=== PATIENT | male | born 1990 | race Caucasian/White ===

== ENCOUNTER 2021-01-12 11:32 | Inpatient (IN) | payer BC ==
--- NOTE | 2021-01-12 11:41 | PCM.HP.2 ---
H&P History of Present Illness - General Date of Service: 01/12/21 Admit Problem/Dx: Hypoxia Source of Information: Patient, Old Records, Provider, RN, RN Notes Reviewed History Limitations: Reports: No Limitations - History of Present Illness Initial Comments - Free Text/Narative: This is a 30-year-old male who presents to our facility as a direct admit from [facility] in [place] due to continuing COVID-19 pneumonia with failed outpatient treatment. Patient reports his symptoms began on 01/01/2021 and he initially tested positive for Covid on 01/12/2021. He reports 2 days ago he was started on a steroid pill, and an antibiotic pill, and a liquid cough medicine but he is not sure what these were. Today he is requiring 3 L of oxygen. He reports diarrhea that comes and goes and a cough with mild sputum production. He states that he does feel congested at times and quite weak. He denies any current medications, known drug allergies, or current medical conditions aside from a jovon in his left leg which was placed several years ago secondary to a fracture. He reports he is overall quite healthy. He did not receive the COVID-19 vaccine. He is not a smoker. He is obese with a BMI of 38.6. He is a full code. He subsequently admitted to the medical floor for management of his COVID-19 pneumonia symptoms and further work-up. - Related Data Allergies/Adverse Reactions: Allergies Allergy/AdvReac Type Severity Reaction Status Date / Time No Known Allergies Allergy Verified 01/12/21 12:31 H&P Review of Systems - Review of Systems: Review Of Systems: See Below General: Reports: Malaise, Weakness, Fatigue. Denies: Fever, Chills, Decreased Appetite HEENT: Reports: No Symptoms. Denies: Headaches, Sore Throat Pulmonary: Reports: Shortness of Breath, Pleuritic Chest Pain, Cough, Sputum. Denies: Wheezing Cardiovascular: Reports: Dyspnea on Exertion, Lightheadedness (when standing ). Denies: Chest Pain, Palpitations, Edema Gastrointestinal: Reports: Diarrhea (at times ). Denies: Abdominal Pain, Constipation, Nausea, Vomiting Genitourinary: Reports: No Symptoms. Denies: Pain Musculoskeletal: Reports: No Symptoms Skin: Reports: No Symptoms. Denies: Cyanosis Psychiatric: Reports: No Symptoms Neurological: Reports: No Symptoms. Denies: Confusion, Dizziness, Headache, Numbness, Pre-Existing Deficit, Seizure, Syncope, Tingling, Tremors, Trouble Speaking, Difficulty Walking, Change in Speech, Gait Disturbance Hematologic/Lymphatic: Reports: No Symptoms Immunologic: Reports: No Symptoms Exam - Exam Exam: See Below - Exam Quality Assessment: Supplemental Oxygen (3L), DVT Prophylaxis (Lovenox ) General: Alert, Oriented, Cooperative. No: Mild Distress HEENT: Conjunctiva Clear, EACs Clear, Mucosa Moist & [place], Posterior Pharynx Clear Neck: Supple, Trachea Midline Lungs: Normal Respiratory Effort, Decreased Breath Sounds, Crackles. No: Wheezing Cardiovascular: Regular Rate, Regular Rhythm GI/Abdominal Exam: Normal Bowel Sounds, Soft, Non-Tender, No Distention (Male) Exam: Deferred Rectal (Males) Exam: Deferred Back Exam: Normal Inspection, Full Range of Motion Extremities: Normal Inspection, Normal Range of Motion, Non-Tender, No Pedal Edema, Normal Capillary Refill Peripheral Pulses: 3+: Radial (L), Radial (R), Dorsalis Pedis (L), Dorsalis Pedis (R) Skin: Warm, Dry, Intact Neurological: Cranial Nerves Intact (Grossly ) Neuro Extensive - Mental Status: Alert, Oriented x3 - Problem List (1) Hypoxia SNOMED Code(s): 479126212 ICD Code: R09.02 - HYPOXEMIA Status: Acute Priority: High Current Visit: Yes (2) COVID-19 SNOMED Code(s): 358332339 ICD Code: U07.1 - COVID-19 Status: Acute Priority: High Current Visit: Yes (3) Pneumonia due to 2019 novel coronavirus SNOMED Code(s): 013331672881350046 ICD Code: U07.1 - COVID-19; J12.82 - PNEUMONIA DUE TO CORONAVIRUS DISEASE 2019 Status: Acute Priority: High Current Visit: Yes (4) Generalized weakness SNOMED Code(s): 51894878 ICD Code: R53.1 - WEAKNESS Status: Acute Priority: High Current Visit: Yes (5) Obesity (BMI 30-39.9) SNOMED Code(s): 242277189, 965411658 ICD Code: E66.9 - OBESITY, UNSPECIFIED Status: Acute Priority: High Current Visit: Yes (6) Acute respiratory failure SNOMED Code(s): 52499528 ICD Code: J96.00 - ACUTE RESPIRATORY FAILURE, UNSP W HYPOXIA OR HYPERCAPNIA Status: Acute Priority: High Current Visit: Yes Problem List Initiated/Reviewed/Updated: Yes Assessment/Plan Comment:: Assessment - day of admission 01/12/2021 * 30-year-old male who presents to our facility as a direct admit from [facility] in [place] due to continuing COVID-19 pneumonia with failed outpatient treatment. * Reports his symptoms began on 01/01/2021 and he initially tested positive for Covid on 01/12/2021 * Reports 2 days ago he was started on a steroid pill, and an antibiotic pill, and a liquid cough medicine but he is not sure what these were. * Today he is requiring 3 L of oxygen. * He reports diarrhea that comes and goes and a cough with mild sputum production. * He states that he does feel congested at times and quite weak. * He denies any current medications, known drug allergies, or current medical conditions aside from a jovon in his left leg which was placed several years ago secondary to a fracture. * He reports he is overall quite healthy. * Did not receive COVID-19 vaccine * He is obese with a BMI of 38.6. * He subsequently admitted to the medical floor for management of his COVID-19 pneumonia symptoms and further work-up. PLAN: Hypoxia COVID-19 Pneumonia due to 2019 novel coronavirus Generalized weakness Acute respiratory failure * RT consultation * PRN Albuterol MDI * PRN Duonebs * Prone whenever able * Dexamethasone 6mg - day 06/24 (started prior to admission) * Remdesivir - day 04/21 * Zinc supplementation * PT/OT consult * CM/SW consultation * O2 as needed to keep saturations between 88-95% * Daily labs * Q48Hr D-Dimer * Lovenox for DVT prophylaxis * Ambulate in room * Telemetry * Continuous pulse oximetry * Airborne/contact isolation * Famotidine 20mg BID * Check CBC, CMP, Magnesium, CRP, D-Dimer, Ferritin, Lactic acid, Vitamin D, LDH, Procalcitonin, and obtain blood cultures * Obtain 1-view CXR * Mucinex BID Obesity (BMI 30-39.9) * Lifestyle modifications * Consider leasing manager consultation when appropriate Code status: Full Code PCP: None locally DVT prophylaxis: Lovenox Disposition: Admitted to medical floor from [place] as a direct admit for m anagement of failed outpatient treatment of COVID-19 pneumonia. Likely length of stay 4 to 5 days pending improvement in oxygenation. - Mortality Measure Prognosis:: Good
[2021-01-12] MEDS ORDERED: Acetaminophen 325 MG Tab PO PRN (12:31)
[2021-01-12] MEDS ORDERED: Albuterol/Ipratropium 3.0-0.5 MG/3 ML Neb Soln NEB PRN (12:31)
[2021-01-12] MEDS ORDERED: Docusate Sodium 100 MG Cap PO PRN (12:31)
[2021-01-12] MEDS ORDERED: Albuterol 6.7 GM Inhaler INH PRN (12:31)
[2021-01-12] MEDS ORDERED: Ondansetron 4 MG/2 ML SDV IV PRN (12:31)
--- NOTE | 2021-01-12 13:15 | CR ---
Chest: Frontal view of the chest was obtained. Comparison: No prior chest imaging is available. Patchy areas of increased density are seen throughout both sides of the chest compatible with fairly prominent COVID pneumonia. Heart size and mediastinum are within normal limits. Bony structures show nothing acute. Impression: 1. Diffuse COVID pneumonia as noted above. Diagnostic code #3
[2021-01-12] MEDS: Zinc Sulfate 220 MG Cap PO SCH (13:59)
[2021-01-12] MEDS: guaiFENesin 600 MG Tab.ER PO SCH ×2 (14:00→20:05)
[2021-01-12] MEDS: Enoxaparin 40 MG/0.4 ML Syringe SUBCUT SCH (14:22)
[2021-01-12] MEDS ORDERED: REMDESIVIR 200 MG in Sodium Chloride 0.9% 250 ML IV ONE (14:30)
[2021-01-12] MEDS: Famotidine 20 MG Tab PO SCH (20:05)
[2021-01-13] MEDS: Dexamethasone 4 MG Tab PO SCH (08:30)
[2021-01-13] MEDS: Cholecalciferol (Vitamin D3) 5,000 UNIT Cap PO SCH (08:30)
[2021-01-13] MEDS: Famotidine 20 MG Tab PO SCH ×2 (08:30→20:13)
[2021-01-13] MEDS: Zinc Sulfate 220 MG Cap PO SCH (08:30)
[2021-01-13] MEDS: guaiFENesin 600 MG Tab.ER PO SCH ×2 (08:30→20:13)
--- NOTE | 2021-01-13 10:56 | PCM.PN ---
- General Info Date of Service: 01/13/21 Admission Dx/Problem (Free Text): Hypoxia Functional Status: Reports: Pain Controlled, Tolerating Diet, Ambulating, Urinating, Incentive Spirometry, Other (Acapella ). Denies: New Symptoms - Review of Systems General: Reports: Weakness. Denies: Fever, Fatigue, Malaise, Chills HEENT: Reports: No Symptoms. Denies: Headaches, Sore Throat Pulmonary: Reports: Shortness of Breath, Cough (very minimal ). Denies: Sputum, Wheezing Cardiovascular: Reports: Dyspnea on Exertion. Denies: Chest Pain, Palpitations, Edema, Lightheadedness Gastrointestinal: Reports: No Symptoms. Denies: Abdominal Pain, Constipation, Diarrhea, Nausea, Vomiting Genitourinary: Reports: No Symptoms. Denies: Pain Musculoskeletal: Reports: No Symptoms Skin: Reports: No Symptoms Neurological: Reports: No Symptoms. Denies: Confusion, Dizziness, Headache, Numbness, Pre-Existing Deficit, Seizure, Syncope, Tingling, Difficulty Walking, Weakness, Gait Disturbance Psychiatric: Reports: No Symptoms - Patient Data Vitals - Most Recent: Last Vital Signs Temp 97.5 F 01/13/21 08:27 Pulse 84 01/13/21 08:23 Resp 18 01/13/21 08:23 BP 148/75 H 01/13/21 08:23 Pulse Ox 92 L 01/13/21 10:02 Weight - Most Recent: 285 lb 1.6 oz I&O - Last 24 Hours: Intake & Output 01/12/21 01/13/21 01/13/21 22:59 06:59 14:59 Intake Total 550 800 Output Total 1100 Balance 550 -300 Lab Results Last 24 Hours: Laboratory Results - last 24 hr 01/12/21 01/12/21 01/12/21 Range/Units 12:56 12:56 12:56 WBC 6.36 (4.23-9.07) K/mm3 RBC 5.18 (4.63-6.08) M/mm3 Hgb 15.1 (13.7-17.5) gm/dl Hct 45.1 (40.1-51.0) % MCV 87.1 (79.0-92.2) fl MCH 29.2 (25.7-32.2) pg MCHC 33.5 (32.2-35.5) g/dl RDW Std Deviation 38.9 (35.1-43.9) fL Plt Count 254 (163-337) K/mm3 MPV 9.5 (9.4-12.3) fl Neut % (Auto) 79.9 H (34.0-67.9) % Lymph % (Auto) 10.4 L (21.8-53.1) % Levy % (Auto) 9.0 (5.3-12.2) % Eos % (Auto) 0 L (0.8-7.0) Baso % (Auto) 0.2 (0.1-1.2) % Neut # (Auto) 5.09 (1.78-5.38) K/mm3 Lymph # (Auto) 0.66 L (1.32-3.57) K/mm3 Levy # (Auto) 0.57 (0.30-0.82) K/mm3 Eos # (Auto) 0.00 L (0.04-0.54) K/mm3 Baso # (Auto) 0.01 (0.01-0.08) K/mm3 Manual Slide Review D-Dimer, Quantitative 0.76 H (0.19-0.50) mg/L Sodium 136 (136-145) mEq/L Potassium 4.6 (3.5-5.1) mEq/L Chloride 100 (98-107) mEq/L Carbon Dioxide 25 (21-32) mEq/L Anion Gap 15.6 H (5-15) BUN 14 (7-18) mg/dL Creatinine 1.2 (0.7-1.3) mg/dL Est Cr Clr Drug Dosing 97.90 mL/min Estimated GFR (MDRD) > 60 (>60) mL/min BUN/Creatinine Ratio 11.7 L (14-18) Glucose 144 H (70-99) mg/dL Lactic Acid (0.4-2.0) mmol/L Calcium 8.8 (8.5-10.1) mg/dL Magnesium 2.7 H (1.8-2.4) mg/dL Ferritin (26-388) ng/ml Total Bilirubin 0.5 (0.2-1.0) mg/dL AST 84 H (15-37) U/L ALT 120 H (16-63) U/L Alkaline Phosphatase 43 L (46-116) U/L Lactate Dehydrogenase 752 H (85-227) U/L C-Reactive Protein 5.3 H* (<1.0) mg/dL Total Protein 8.0 (6.4-8.2) g/dl Albumin 3.1 L (3.4-5.0) g/dl Globulin 4.9 gm/dL Albumin/Globulin Ratio 0.6 L (1-2) Vitamin D 25-Hydroxy (30.0-100.0) ng/ml Procalcitonin ng/mL 01/12/21 01/12/21 01/12/21 Range/Units 12:56 12:56 12:56 WBC (4.23-9.07) K/mm3 RBC (4.63-6.08) M/mm3 Hgb (13.7-17.5) gm/dl Hct (40.1-51.0) % MCV (79.0-92.2) fl MCH (25.7-32.2) pg MCHC (32.2-35.5) g/dl RDW Std Deviation (35.1-43.9) fL Plt Count (163-337) K/mm3 MPV (9.4-12.3) fl Neut % (Auto) (34.0-67.9) % Lymph % (Auto) (21.8-53.1) % Levy % (Auto) (5.3-12.2) % Eos % (Auto) (0.8-7.0) Baso % (Auto) (0.1-1.2) % Neut # (Auto) (1.78-5.38) K/mm3 Lymph # (Auto) (1.32-3.57) K/mm3 Levy # (Auto) (0.30-0.82) K/mm3 Eos # (Auto) (0.04-0.54) K/mm3 Baso # (Auto) (0.01-0.08) K/mm3 Manual Slide Review D-Dimer, Quantitative (0.19-0.50) mg/L Sodium (136-145) mEq/L Potassium (3.5-5.1) mEq/L Chloride (98-107) mEq/L Carbon Dioxide (21-32) mEq/L Anion Gap (5-15) BUN (7-18) mg/dL Creatinine (0.7-1.3) mg/dL Est Cr Clr Drug Dosing mL/min Estimated GFR (MDRD) (>60) mL/min BUN/Creatinine Ratio (14-18) Glucose (70-99) mg/dL Lactic Acid 1.7 (0.4-2.0) mmol/L Calcium (8.5-10.1) mg/dL Magnesium (1.8-2.4) mg/dL Ferritin 4310 H (26-388) ng/ml Total Bilirubin (0.2-1.0) mg/dL AST (15-37) U/L ALT (16-63) U/L Alkaline Phosphatase (46-116) U/L Lactate Dehydrogenase (85-227) U/L C-Reactive Protein (<1.0) mg/dL Total Protein (6.4-8.2) g/dl Albumin (3.4-5.0) g/dl Globulin gm/dL Albumin/Globulin Ratio (1-2) Vitamin D 25-Hydroxy (30.0-100.0) ng/ml Procalcitonin 0.13 H ng/mL 01/12/21 01/13/21 01/13/21 Range/Units 12:56 05:44 05:44 WBC 7.45 (4.23-9.07) K/mm3 RBC 4.81 (4.63-6.08) M/mm3 Hgb 14.0 (13.7-17.5) gm/dl Hct 41.7 (40.1-51.0) % MCV 86.7 (79.0-92.2) fl MCH 29.1 (25.7-32.2) pg MCHC 33.6 (32.2-35.5) g/dl RDW Std Deviation 38.6 (35.1-43.9) fL Plt Count 294 (163-337) K/mm3 MPV 9.5 (9.4-12.3) fl Neut % (Auto) 72.1 H (34.0-67.9) % Lymph % (Auto) 13.0 L (21.8-53.1) % Levy % (Auto) 14.4 H (5.3-12.2) % Eos % (Auto) 0 L (0.8-7.0) Baso % (Auto) 0.1 (0.1-1.2) % Neut # (Auto) 5.37 (1.78-5.38) K/mm3 Lymph # (Auto) 0.97 L (1.32-3.57) K/mm3 Levy # (Auto) 1.07 H (0.30-0.82) K/mm3 Eos # (Auto) 0.00 L (0.04-0.54) K/mm3 Baso # (Auto) 0.01 (0.01-0.08) K/mm3 Manual Slide Review Normal smear D-Dimer, Quantitative (0.19-0.50) mg/L Sodium 139 (136-145) mEq/L Potassium 4.3 (3.5-5.1) mEq/L Chloride 105 (98-107) mEq/L Carbon Dioxide 27 (21-32) mEq/L Anion Gap 11.3 (5-15) BUN 17 (7-18) mg/dL Creatinine 1.0 (0.7-1.3) mg/dL Est Cr Clr Drug Dosing 117.48 mL/min Estimated GFR (MDRD) > 60 (>60) mL/min BUN/Creatinine Ratio 17.0 (14-18) Glucose 137 H (70-99) mg/dL Lactic Acid (0.4-2.0) mmol/L Calcium 8.3 L (8.5-10.1) mg/dL Magnesium 2.3 (1.8-2.4) mg/dL Ferritin (26-388) ng/ml Total Bilirubin 0.4 (0.2-1.0) mg/dL AST 81 H (15-37) U/L ALT 137 H (16-63) U/L Alkaline Phosphatase 37 L (46-116) U/L Lactate Dehydrogenase (85-227) U/L C-Reactive Protein 2.6 H* (<1.0) mg/dL Total Protein 6.8 (6.4-8.2) g/dl Albumin 2.7 L (3.4-5.0) g/dl Globulin 4.1 gm/dL Albumin/Globulin Ratio 0.7 L (1-2) Vitamin D 25-Hydroxy 30.5 (30.0-100.0) ng/ml Procalcitonin ng/mL Med Orders - Current: Current Medications Acetaminophen (Acetaminophen 325 Mg Tab) 650 mg PO Q4H PRN PRN Reason: Pain (Mild 1-3)/fever Albuterol (Albuterol 6.7 Gm Inhaler) 0 gm INH Q2H PRN PRN Reason: SOB/Wheezing Albuterol/Ipratropium (Albuterol/Ipratropium 3.0-0.5 Mg/3 Ml Neb Soln) 3 ml NEB QIDRT PRN PRN Reason: Shortness Of Breath/wheezing Cholecalciferol (Cholecalciferol (Vitamin D3) 5,000 Unit Cap) 5,000 unit PO DAILY [facility] Last Admin: 01/13/21 08:30 Dose: 5,000 unit Documented by: Dexamethasone (Dexamethasone 4 Mg Tab) 6 mg PO DAILY [facility] Stop: 01/20/21 09:01 Last Admin: 01/13/21 08:30 Dose: 6 mg Documented by: Docusate Sodium (Docusate Sodium 100 Mg Cap) 100 mg PO Q12H PRN PRN Reason: Constipation Enoxaparin Sodium (Enoxaparin 40 Mg/0.4 Ml Syringe) 40 mg SUBCUT Q24H [facility] Last Admin: 01/12/21 14:22 Dose: 40 mg Documented by: Famotidine (Famotidine 20 Mg Tab) 20 mg PO BID [facility] Last Admin: 01/13/21 08:30 Dose: 20 mg Documented by: Guaifenesin (Guaifenesin 600 Mg Tab.Er) 600 mg PO BID [facility] Last Admin: 01/13/21 08:30 Dose: 600 mg Documented by: Remdesivir 100 mg/ Sodium (Chloride) 100 mls @ 100 mls/hr IV Q24H [facility] Stop: 01/16/21 15:29 Ondansetron HCl (Ondansetron 4 Mg/2 Ml Sdv) 4 mg IV Q6H PRN PRN Reason: Nausea/Vomiting Zinc Sulfate (Zinc Sulfate 220 Mg Cap) 220 mg PO DAILY [facility] Last Admin: 01/13/21 08:30 Dose: 220 mg Documented by: Discontinued Medications Remdesivir 200 mg/ Sodium (Chloride) 250 mls @ 250 mls/hr IV ONETIME ONE Stop: 01/12/21 15:29 Last Admin: 01/12/21 14:15 Dose: 250 mls/hr Documented by: - Exam Quality Assessment: Supplemental Oxygen (1L), DVT Prophylaxis. No: Urine Catheter General: Alert, Oriented, Cooperative, No Acute Distress HEENT: Pupils Equal, Pupils Reactive, Mucous Membr. Moist/[place] Neck: Supple, Trachea Midline Lungs: Normal Respiratory Effort, Decreased Breath Sounds. No: Crackles, Wheezing Cardiovascular: Regular Rate, Regular Rhythm GI/Abdominal Exam: Normal Bowel Sounds, Soft, Non-Tender, No Distention (Male) Exam: Deferred Back Exam: Normal Inspection, Full Range of Motion Extremities: Normal Inspection, Normal Range of Motion, Non-Tender, No Pedal Edema, Normal Capillary Refill Peripheral Pulses: 2+: Radial (L), Radial (R), Dorsalis Pedis (L), Dorsalis Pedis (R) Skin: Warm, Dry, Intact Neurological: No New Focal Deficit Psy/Mental Status: Alert, Normal Affect, Normal Mood - Patient Data Lab Results Last 24 hrs: Laboratory Results - last 24 hr 01/12/21 01/12/21 01/12/21 Range/Units 12:56 12:56 12:56 WBC 6.36 (4.23-9.07) K/mm3 RBC 5.18 (4.63-6.08) M/mm3 Hgb 15.1 (13.7-17.5) gm/dl Hct 45.1 (40.1-51.0) % MCV 87.1 (79.0-92.2) fl MCH 29.2 (25.7-32.2) pg MCHC 33.5 (32.2-35.5) g/dl RDW Std Deviation 38.9 (35.1-43.9) fL Plt Count 254 (163-337) K/mm3 MPV 9.5 (9.4-12.3) fl Neut % (Auto) 79.9 H (34.0-67.9) % Lymph % (Auto) 10.4 L (21.8-53.1) % Levy % (Auto) 9.0 (5.3-12.2) % Eos % (Auto) 0 L (0.8-7.0) Baso % (Auto) 0.2 (0.1-1.2) % Neut # (Auto) 5.09 (1.78-5.38) K/mm3 Lymph # (Auto) 0.66 L (1.32-3.57) K/mm3 Levy # (Auto) 0.57 (0.30-0.82) K/mm3 Eos # (Auto) 0.00 L (0.04-0.54) K/mm3 Baso # (Auto) 0.01 (0.01-0.08) K/mm3 Manual Slide Review D-Dimer, Quantitative 0.76 H (0.19-0.50) mg/L Sodium 136 (136-145) mEq/L Potassium 4.6 (3.5-5.1) mEq/L Chloride 100 (98-107) mEq/L Carbon Dioxide 25 (21-32) mEq/L Anion Gap 15.6 H (5-15) BUN 14 (7-18) mg/dL Creatinine 1.2 (0.7-1.3) mg/dL Est Cr Clr Drug Dosing 97.90 mL/min Estimated GFR (MDRD) > 60 (>60) mL/min BUN/Creatinine Ratio 11.7 L (14-18) Glucose 144 H (70-99) mg/dL Lactic Acid (0.4-2.0) mmol/L Calcium 8.8 (8.5-10.1) mg/dL Magnesium 2.7 H (1.8-2.4) mg/dL Ferritin (26-388) ng/ml Total Bilirubin 0.5 (0.2-1.0) mg/dL AST 84 H (15-37) U/L ALT 120 H (16-63) U/L Alkaline Phosphatase 43 L (46-116) U/L Lactate Dehydrogenase 752 H (85-227) U/L C-Reactive Protein 5.3 H* (<1.0) mg/dL Total Protein 8.0 (6.4-8.2) g/dl Albumin 3.1 L (3.4-5.0) g/dl Globulin 4.9 gm/dL Albumin/Globulin Ratio 0.6 L (1-2) Vitamin D 25-Hydroxy (30.0-100.0) ng/ml Procalcitonin ng/mL 01/12/21 01/12/21 01/12/21 Range/Units 12:56 12:56 12:56 WBC (4.23-9.07) K/mm3 RBC (4.63-6.08) M/mm3 Hgb (13.7-17.5) gm/dl Hct (40.1-51.0) % MCV (79.0-92.2) fl MCH (25.7-32.2) pg MCHC (32.2-35.5) g/dl RDW Std Deviation (35.1-43.9) fL Plt Count (163-337) K/mm3 MPV (9.4-12.3) fl Neut % (Auto) (34.0-67.9) % Lymph % (Auto) (21.8-53.1) % Levy % (Auto) (5.3-12.2) % Eos % (Auto) (0.8-7.0) Baso % (Auto) (0.1-1.2) % Neut # (Auto) (1.78-5.38) K/mm3 Lymph # (Auto) (1.32-3.57) K/mm3 Levy # (Auto) (0.30-0.82) K/mm3 Eos # (Auto) (0.04-0.54) K/mm3 Baso # (Auto) (0.01-0.08) K/mm3 Manual Slide Review D-Dimer, Quantitative (0.19-0.50) mg/L Sodium (136-145) mEq/L Potassium (3.5-5.1) mEq/L Chloride (98-107) mEq/L Carbon Dioxide (21-32) mEq/L Anion Gap (5-15) BUN (7-18) mg/dL Creatinine (0.7-1.3) mg/dL Est Cr Clr Drug Dosing mL/min Estimated GFR (MDRD) (>60) mL/min BUN/Creatinine Ratio (14-18) Glucose (70-99) mg/dL Lactic Acid 1.7 (0.4-2.0) mmol/L Calcium (8.5-10.1) mg/dL Magnesium (1.8-2.4) mg/dL Ferritin 4310 H (26-388) ng/ml Total Bilirubin (0.2-1.0) mg/dL AST (15-37) U/L ALT (16-63) U/L Alkaline Phosphatase (46-116) U/L Lactate Dehydrogenase (85-227) U/L C-Reactive Protein (<1.0) mg/dL Total Protein (6.4-8.2) g/dl Albumin (3.4-5.0) g/dl Globulin gm/dL Albumin/Globulin Ratio (1-2) Vitamin D 25-Hydroxy (30.0-100.0) ng/ml Procalcitonin 0.13 H ng/mL 01/12/21 01/13/21 01/13/21 Range/Units 12:56 05:44 05:44 WBC 7.45 (4.23-9.07) K/mm3 RBC 4.81 (4.63-6.08) M/mm3 Hgb 14.0 (13.7-17.5) gm/dl Hct 41.7 (40.1-51.0) % MCV 86.7 (79.0-92.2) fl MCH 29.1 (25.7-32.2) pg MCHC 33.6 (32.2-35.5) g/dl RDW Std Deviation 38.6 (35.1-43.9) fL Plt Count 294 (163-337) K/mm3 MPV 9.5 (9.4-12.3) fl Neut % (Auto) 72.1 H (34.0-67.9) % Lymph % (Auto) 13.0 L (21.8-53.1) % Levy % (Auto) 14.4 H (5.3-12.2) % Eos % (Auto) 0 L (0.8-7.0) Baso % (Auto) 0.1 (0.1-1.2) % Neut # (Auto) 5.37 (1.78-5.38) K/mm3 Lymph # (Auto) 0.97 L (1.32-3.57) K/mm3 Levy # (Auto) 1.07 H (0.30-0.82) K/mm3 Eos # (Auto) 0.00 L (0.04-0.54) K/mm3 Baso # (Auto) 0.01 (0.01-0.08) K/mm3 Manual Slide Review Normal smear D-Dimer, Quantitative (0.19-0.50) mg/L Sodium 139 (136-145) mEq/L Potassium 4.3 (3.5-5.1) mEq/L Chloride 105 (98-107) mEq/L Carbon Dioxide 27 (21-32) mEq/L Anion Gap 11.3 (5-15) BUN 17 (7-18) mg/dL Creatinine 1.0 (0.7-1.3) mg/dL Est Cr Clr Drug Dosing 117.48 mL/min Estimated GFR (MDRD) > 60 (>60) mL/min BUN/Creatinine Ratio 17.0 (14-18) Glucose 137 H (70-99) mg/dL Lactic Acid (0.4-2.0) mmol/L Calcium 8.3 L (8.5-10.1) mg/dL Magnesium 2.3 (1.8-2.4) mg/dL Ferritin (26-388) ng/ml Total Bilirubin 0.4 (0.2-1.0) mg/dL AST 81 H (15-37) U/L ALT 137 H (16-63) U/L Alkaline Phosphatase 37 L (46-116) U/L Lactate Dehydrogenase (85-227) U/L C-Reactive Protein 2.6 H* (<1.0) mg/dL Total Protein 6.8 (6.4-8.2) g/dl Albumin 2.7 L (3.4-5.0) g/dl Globulin 4.1 gm/dL Albumin/Globulin Ratio 0.7 L (1-2) Vitamin D 25-Hydroxy 30.5 (30.0-100.0) ng/ml Procalcitonin ng/mL Result Diagrams: 01/13/21 05:44 01/13/21 05:44 Sepsis Event Note - Evaluation Sepsis Screening Result: No Definite Risk - Focused Exam Vital Signs: Vital Signs Temp Pulse Resp BP Pulse Ox Pulse Ox 01/13/21 10:02 92 L 01/13/21 08:27 97.5 F 01/13/21 08:23 84 18 148/75 H 93 L 01/13/21 02:44 97.9 F 88 18 125/87 90 L - Problem List & Annotations (1) Hypoxia SNOMED Code(s): 767061427 Code(s): R09.02 - HYPOXEMIA Status: Acute Priority: High Current Visit: Yes (2) COVID-19 SNOMED Code(s): 892831665 Code(s): U07.1 - COVID-19 Status: Acute Priority: High Current Visit: Yes (3) Pneumonia due to 2019 novel coronavirus SNOMED Code(s): 646836738871644921 Code(s): U07.1 - COVID-19; J12.82 - PNEUMONIA DUE TO CORONAVIRUS DISEASE 2019 Status: Acute Priority: High Current Visit: Yes (4) Generalized weakness SNOMED Code(s): 36611085 Code(s): R53.1 - WEAKNESS Status: Acute Priority: High Current Visit: Yes (5) Obesity (BMI 30-39.9) SNOMED Code(s): 279710870, 647102332 Code(s): E66.9 - OBESITY, UNSPECIFIED Status: Acute Priority: High Current Visit: Yes (6) Acute respiratory failure SNOMED Code(s): 90162787 Code(s): J96.00 - ACUTE RESPIRATORY FAILURE, UNSP W HYPOXIA OR HYPERCAPNIA Status: Acute Priority: High Current Visit: Yes - Problem List Review Problem List Initiated/Reviewed/Updated: Yes - My Orders Last 24 Hours: My Active Orders 01/12/21 12:31 Patient Status [ADT] Routine Height and Weight [RC] 06 Oxygen Therapy [RC] ASDIRECTED RT Chest Physiotherapy [RC] ASDIRECTED RT Incentive Spirometry [RC] ASDIRECTED Up ad Debby [RC] DAILY Vital Signs [RC] 0400,1000,1600,2200 Acetaminophen [TylenoL] 650 mg PO Q4H PRN Albuterol [Proventil HFA] See Dose Instructions INH Q2H PRN Albuterol/Ipratropium [DuoNeb 3.0-0.5 MG/3 ML] 3 ml NEB QIDRT PRN Docusate Sodium [Colace] 100 mg PO Q12H PRN Ondansetron [Zofran] 4 mg IV Q6H PRN Isolation [COMM] Routine Resuscitation Status Routine 01/12/21 12:32 Intake and Output [RC] 0400,1600 Pulse Oximetry [RC] CONTINUOUS 01/12/21 12:33 RT Aerosol Therapy [RC] ASDIRECTED 01/12/21 12:35 Respiratory Care Assess and Treatment [CONS] Routine 01/12/21 12:37 Positioning, Patient [RC] 10,22 Blood Culture x2 Reflex Set [OM.PC] Stat 01/12/21 12:45 guaiFENesin [Mucinex] 600 mg PO BID 01/12/21 12:56 BLOOD CULTURE [MREF] Stat 01/12/21 13:06 BLOOD CULTURE [MREF] Stat 01/12/21 14:30 Enoxaparin [Lovenox] 40 mg SUBCUT Q24H 01/12/21 15:00 Zinc Sulfate [Zincate] 220 mg PO DAILY 01/12/21 21:00 Famotidine [Pepcid] 20 mg PO BID 01/13/21 09:00 Cholecalciferol (Vitamin D3) [Vitamin D3] 5,000 unit PO DAILY dexAMETHasone 6 mg PO DAILY 01/13/21 14:30 Remdesivir 100 mg Sodium Chloride 0.9% [Normal Saline] 100 ml IV Q24H 01/14/21 05:11 C-REACTIVE PROTEIN [CHEM] AM CBC WITH AUTO DIFF [HEME] AM COMPREHENSIVE METABOLIC PN,CMP [CHEM] AM D-DIMER QUANTITATIVE [COAG] Q48H MAGNESIUM [CHEM] AM 01/15/21 05:11 C-REACTIVE PROTEIN [CHEM] AM CBC WITH AUTO DIFF [HEME] AM COMPREHENSIVE METABOLIC PN,CMP [CHEM] AM MAGNESIUM [CHEM] AM 01/16/21 05:11 C-REACTIVE PROTEIN [CHEM] AM CBC WITH AUTO DIFF [HEME] AM COMPREHENSIVE METABOLIC PN,CMP [CHEM] AM D-DIMER QUANTITATIVE [COAG] Q48H MAGNESIUM [CHEM] AM 01/18/21 05:11 D-DIMER QUANTITATIVE [COAG] Q48H - Assessment Assessment:: Assessment - day of admission 01/12/2021 * 30-year-old male who presents to our facility as a direct admit from [facility] in [place] due to continuing COVID-19 pneumonia with failed outpatient treatment. * Reports his symptoms began on 01/01/2021 and he initially tested positive for Covid on 01/12/2021 * Reports 2 days ago he was started on a steroid pill, and an antibiotic pill, and a liquid cough medicine but he is not sure what these were. * Today he is requiring 3 L of oxygen. * He reports diarrhea that comes and goes and a cough with mild sputum production. * He states that he does feel congested at times and quite weak. * He denies any current medications, known drug allergies, or current medical conditions aside from a jovon in his left leg which was placed several years ago secondary to a fracture. * He reports he is overall quite healthy. * Did not receive COVID-19 vaccine * He is obese with a BMI of 38.6. * He subsequently admitted to the medical floor for management of his COVID-19 pneumonia symptoms and further work-up. 01/13/2021 30-year-old male admitted to the hospital after being transferred from [place] with COVID-19 pneumonia. Overall has been doing quite well. He is weaned down to 1 L supplemental oxygen. He is receiving remdesivir and dexamethasone. He states his cough has been very minimal and his shortness of breath has greatly improved. He has been proning and utilizing his incentive spirometry and Acapella. He has no concerns. Labs today show WBC of 7.45. Hemoglobin 14.0. Platelet 294. Neutrophils are elevated 72.1%. D-dimer yesterday was 0.76. We will recheck this tomorrow. Sodium is 139. Potassium is 4.3. Chloride is 105. Carbon dioxide is 27. Anion gap is 11.3. BUN is 17. Creatinine 1.0. GFR greater than 60. Glucose is 137. Calcium 8.3. Magnesium is 2.3. Ferritin obtained yesterday was 4310. Bilirubin 0.4. AST is 81, ALT 137, alkaline phosphatase 37. LDH obtained yesterday was 752. CRP is 2.6 which is down from yesterday. Protein is 6.8. Albumin 2.7. Vitamin D obtained yesterday was 30.5. Patient was started on vitamin D supplementation. Procalcitonin was 0.13. He is remained very stable. Hopeful for discharge in the next 1 to 3 days pending continued improvement and weaning of oxygen. - Plan Plan:: Hypoxia COVID-19 Pneumonia due to 2019 novel coronavirus Generalized weakness Acute respiratory failure * RT consultation * PRN Albuterol MDI * PRN Duonebs * Prone whenever able * Dexamethasone 6mg - day 07/25 (started prior to admission) * Remdesivir - day 2 * Zinc supplementation * PT/OT consult * CM/SW consultation * O2 as needed to keep saturations between 88-95% * Daily labs * Q48Hr D-Dimer * Lovenox for DVT prophylaxis * Ambulate in room * Telemetry * Continuous pulse oximetry * Airborne/contact isolation * Famotidine 20mg BID * Mucinex BID Obesity (BMI 30-39.9) * Lifestyle modifications * Consider extermination supervisor consultation when appropriate Code status: Full Code PCP: None locally DVT prophylaxis: Lovenox Disposition: Admitted to medical floor from [place] as a direct admit for management of failed outpatient treatment of COVID-19 pneumonia. Likely length of stay 4 to 5 days pending improvement in oxygenation.
[2021-01-13] MEDS: Enoxaparin 40 MG/0.4 ML Syringe SUBCUT SCH (13:39)
[2021-01-13] MEDS: REMDESIVIR 100 MG in Sodium Chloride 0.9% 100 ML IV SCH (13:40)
--- NOTE | 2021-01-14 07:13 | PCM.PN ---
- General Info Date of Service: 01/14/21 Admission Dx/Problem (Free Text): Hypoxia Functional Status: Reports: Pain Controlled, Tolerating Diet, Ambulating, Urinating, Incentive Spirometry, Other (Acapella ). Denies: New Symptoms - Review of Systems General: Reports: No Symptoms. Denies: Fever, Weakness, Fatigue, Malaise, Chills HEENT: Reports: No Symptoms. Denies: Headaches, Sore Throat Pulmonary: Reports: Cough (very minimal ), Sputum (occasional but minimal ). Denies: Shortness of Breath, Pleuritic Chest Pain, Wheezing Cardiovascular: Reports: No Symptoms. Denies: Chest Pain, Palpitations, Dyspnea on Exertion, Edema Gastrointestinal: Reports: No Symptoms. Denies: Abdominal Pain, Constipation, Diarrhea, Nausea, Vomiting Genitourinary: Reports: No Symptoms. Denies: Pain Musculoskeletal: Reports: No Symptoms Skin: Reports: No Symptoms. Denies: Cyanosis Neurological: Reports: No Symptoms. Denies: Confusion, Dizziness, Headache, Numbness, Pre-Existing Deficit, Seizure, Syncope, Tingling, Difficulty Walking, Weakness, Gait Disturbance Psychiatric: Reports: No Symptoms - Patient Data Vitals - Most Recent: Last Vital Signs Temp 97.7 F 01/14/21 05:36 Pulse 78 01/14/21 05:36 Resp 18 01/14/21 05:36 BP 147/92 H 01/14/21 05:36 Pulse Ox 91 L 01/14/21 06:41 Weight - Most Recent: 282 lb 8 oz I&O - Last 24 Hours: Intake & Output 01/13/21 01/14/21 01/14/21 22:59 06:59 14:59 Intake Total 1960 800 Output Total 800 Balance 1160 800 Lab Results Last 24 Hours: Laboratory Results - last 24 hr 01/13/21 01/14/21 01/14/21 Range/Units 05:44 05:05 05:05 WBC 9.04 (4.23-9.07) K/mm3 RBC 4.77 (4.63-6.08) M/mm3 Hgb 14.0 (13.7-17.5) gm/dl Hct 41.7 (40.1-51.0) % MCV 87.4 (79.0-92.2) fl MCH 29.4 (25.7-32.2) pg MCHC 33.6 (32.2-35.5) g/dl RDW Std Deviation 38.9 (35.1-43.9) fL Plt Count 320 (163-337) K/mm3 MPV 9.5 (9.4-12.3) fl Neut % (Auto) 73.4 H (34.0-67.9) % Lymph % (Auto) 13.8 L (21.8-53.1) % [place] % (Auto) 12.3 H (5.3-12.2) % Eos % (Auto) 0 L (0.8-7.0) Baso % (Auto) 0.1 (0.1-1.2) % Neut # (Auto) 6.63 H (1.78-5.38) K/mm3 Lymph # (Auto) 1.25 L (1.32-3.57) K/mm3 [place] # (Auto) 1.11 H (0.30-0.82) K/mm3 Eos # (Auto) 0.00 L (0.04-0.54) K/mm3 Baso # (Auto) 0.01 (0.01-0.08) K/mm3 Manual Slide Review Normal smear Normal smear D-Dimer, Quantitative 0.38 (0.19-0.50) mg/L Sodium (136-145) mEq/L Potassium (3.5-5.1) mEq/L Chloride (98-107) mEq/L Carbon Dioxide (21-32) mEq/L Anion Gap (5-15) BUN (7-18) mg/dL Creatinine (0.7-1.3) mg/dL Est Cr Clr Drug Dosing mL/min Estimated GFR (MDRD) (>60) mL/min BUN/Creatinine Ratio (14-18) Glucose (70-99) mg/dL Calcium (8.5-10.1) mg/dL Magnesium (1.8-2.4) mg/dL Total Bilirubin (0.2-1.0) mg/dL AST (15-37) U/L ALT (16-63) U/L Alkaline Phosphatase (46-116) U/L C-Reactive Protein (<1.0) mg/dL Total Protein (6.4-8.2) g/dl Albumin (3.4-5.0) g/dl Globulin gm/dL Albumin/Globulin Ratio (1-2) 01/14/21 Range/Units 05:05 WBC (4.23-9.07) K/mm3 RBC (4.63-6.08) M/mm3 Hgb (13.7-17.5) gm/dl Hct (40.1-51.0) % MCV (79.0-92.2) fl MCH (25.7-32.2) pg MCHC (32.2-35.5) g/dl RDW Std Deviation (35.1-43.9) fL Plt Count (163-337) K/mm3 MPV (9.4-12.3) fl Neut % (Auto) (34.0-67.9) % Lymph % (Auto) (21.8-53.1) % Kemper % (Auto) (5.3-12.2) % Eos % (Auto) (0.8-7.0) Baso % (Auto) (0.1-1.2) % Neut # (Auto) (1.78-5.38) K/mm3 Lymph # (Auto) (1.32-3.57) K/mm3 Kem[place] # (Auto) (0.30-0.82) K/mm3 Eos # (Auto) (0.04-0.54) K/mm3 Baso # (Auto) (0.01-0.08) K/mm3 Manual Slide Review D-Dimer, Quantitative (0.19-0.50) mg/L Sodium 140 (136-145) mEq/L Potassium 4.1 (3.5-5.1) mEq/L Chloride 105 (98-107) mEq/L Carbon Dioxide 26 (21-32) mEq/L Anion Gap 13.1 (5-15) BUN 15 (7-18) mg/dL Creatinine 0.9 (0.7-1.3) mg/dL Est Cr Clr Drug Dosing 130.53 mL/min Estimated GFR (MDRD) > 60 (>60) mL/min BUN/Creatinine Ratio 16.7 (14-18) Glucose 135 H (70-99) mg/dL Calcium 8.4 L (8.5-10.1) mg/dL Magnesium 2.3 (1.8-2.4) mg/dL Total Bilirubin 0.7 (0.2-1.0) mg/dL AST 92 H (15-37) U/L ALT 198 H (16-63) U/L Alkaline Phosphatase 38 L (46-116) U/L C-Reactive Protein 1.6 H* (<1.0) mg/dL Total Protein 6.8 (6.4-8.2) g/dl Albumin 2.8 L (3.4-5.0) g/dl Globulin 4.0 gm/dL Albumin/Globulin Ratio 0.7 L (1-2) Eugenio Results Last 24 Hours: Microbiology 01/12/21 13:06 Blood Culture - Preliminary Blood - Venous - Lab Draw 01/12/21 12:56 Blood Culture - Preliminary Blood - Venous Med Orders - Current: Current Medications Acetaminophen (Acetaminophen 325 Mg Tab) 650 mg PO Q4H PRN PRN Reason: Pain (Mild 1-3)/fever Albuterol (Albuterol 6.7 Gm Inhaler) 0 gm INH Q2H PRN PRN Reason: SOB/Wheezing Albuterol/Ipratropium (Albuterol/Ipratropium 3.0-0.5 Mg/3 Ml Neb Soln) 3 ml NEB QIDRT PRN PRN Reason: Shortness Of Breath/wheezing Cholecalciferol (Cholecalciferol (Vitamin D3) 5,000 Unit Cap) 5,000 unit PO DAILY [facility] Last Admin: 01/13/21 08:30 Dose: 5,000 unit Documented by: Dexamethasone (Dexamethasone 4 Mg Tab) 6 mg PO DAILY [facility] Stop: 01/20/21 09:01 Last Admin: 01/13/21 08:30 Dose: 6 mg Documented by: Docusate Sodium (Docusate Sodium 100 Mg Cap) 100 mg PO Q12H PRN PRN Reason: Constipation Enoxaparin Sodium (Enoxaparin 40 Mg/0.4 Ml Syringe) 40 mg SUBCUT Q24H [facility] Last Admin: 01/13/21 13:39 Dose: 40 mg Documented by: Famotidine (Famotidine 20 Mg Tab) 20 mg PO BID [facility] Last Admin: 01/13/21 20:13 Dose: 20 mg Documented by: Guaifenesin (Guaifenesin 600 Mg Tab.Er) 600 mg PO BID [facility] Last Admin: 01/13/21 20:13 Dose: 600 mg Documented by: Remdesivir 100 mg/ Sodium (Chloride) 100 mls @ 100 mls/hr IV Q24H [facility] Stop: 01/16/21 15:29 Last Admin: 01/13/21 13:40 Dose: 100 mls/hr Documented by: Ondansetron HCl (Ondansetron 4 Mg/2 Ml Sdv) 4 mg IV Q6H PRN PRN Reason: Nausea/Vomiting Zinc Sulfate (Zinc Sulfate 220 Mg Cap) 220 mg PO DAILY [facility] Last Admin: 01/13/21 08:30 Dose: 220 mg Documented by: Discontinued Medications Remdesivir 200 mg/ Sodium (Chloride) 250 mls @ 250 mls/hr IV ONETIME ONE Stop: 01/12/21 15:29 Last Admin: 01/12/21 14:15 Dose: 250 mls/hr Documented by: - Exam Quality Assessment: DVT Prophylaxis. No: Supplemental Oxygen, Urine Catheter General: Alert, Oriented, Cooperative, No Acute Distress HEENT: Pupils Equal, Pupils Reactive, Mucous Membr. Moist/[place] Neck: Supple Lungs: Normal Respiratory Effort, Decreased Breath Sounds (improved ). No: Crac kles, Wheezing Cardiovascular: Regular Rate, Regular Rhythm GI/Abdominal Exam: Normal Bowel Sounds, Soft, Non-Tender, No Organomegaly, No Distention (Male) Exam: Deferred Back Exam: Normal Inspection, Full Range of Motion Extremities: Normal Inspection, Normal Range of Motion, Non-Tender, No Pedal Edema, Normal Capillary Refill Peripheral Pulses: 2+: Radial (L), Radial (R), Dorsalis Pedis (L), Dorsalis Pedis (R) Skin: Warm, Dry, Intact Neurological: No New Focal Deficit Psy/Mental Status: Alert, Normal Affect, Normal Mood - Patient Data Lab Results Last 24 hrs: Laboratory Results - last 24 hr 01/13/21 01/14/21 01/14/21 Range/Units 05:44 05:05 05:05 WBC 9.04 (4.23-9.07) K/mm3 RBC 4.77 (4.63-6.08) M/mm3 Hgb 14.0 (13.7-17.5) gm/dl Hct 41.7 (40.1-51.0) % MCV 87.4 (79.0-92.2) fl MCH 29.4 (25.7-32.2) pg MCHC 33.6 (32.2-35.5) g/dl RDW Std Deviation 38.9 (35.1-43.9) fL Plt Count 320 (163-337) K/mm3 MPV 9.5 (9.4-12.3) fl Neut % (Auto) 73.4 H (34.0-67.9) % Lymph % (Auto) 13.8 L (21.8-53.1) % Kemper % (Auto) 12.3 H (5.3-12.2) % Eos % (Auto) 0 L (0.8-7.0) Baso % (Auto) 0.1 (0.1-1.2) % Neut # (Auto) 6.63 H (1.78-5.38) K/mm3 Lymph # (Auto) 1.25 L (1.32-3.57) K/mm3 Kem[place] # (Auto) 1.11 H (0.30-0.82) K/mm3 Eos # (Auto) 0.00 L (0.04-0.54) K/mm3 Baso # (Auto) 0.01 (0.01-0.08) K/mm3 Manual Slide Review Normal smear Normal smear D-Dimer, Quantitative 0.38 (0.19-0.50) mg/L Sodium (136-145) mEq/L Potassium (3.5-5.1) mEq/L Chloride (98-107) mEq/L Carbon Dioxide (21-32) mEq/L Anion Gap (5-15) BUN (7-18) mg/dL Creatinine (0.7-1.3) mg/dL Est Cr Clr Drug Dosing mL/min Estimated GFR (MDRD) (>60) mL/min BUN/Creatinine Ratio (14-18) Glucose (70-99) mg/dL Calcium (8.5-10.1) mg/dL Magnesium (1.8-2.4) mg/dL Total Bilirubin (0.2-1.0) mg/dL AST (15-37) U/L ALT (16-63) U/L Alkaline Phosphatase (46-116) U/L C-Reactive Protein (<1.0) mg/dL Total Protein (6.4-8.2) g/dl Albumin (3.4-5.0) g/dl Globulin gm/dL Albumin/Globulin Ratio (1-2) 01/14/21 Range/Units 05:05 WBC (4.23-9.07) K/mm3 RBC (4.63-6.08) M/mm3 Hgb (13.7-17.5) gm/dl Hct (40.1-51.0) % MCV (79.0-92.2) fl MCH (25.7-32.2) pg MCHC (32.2-35.5) g/dl RDW Std Deviation (35.1-43.9) fL Plt Count (163-337) K/mm3 MPV (9.4-12.3) fl Neut % (Auto) (34.0-67.9) % Lymph % (Auto) (21.8-53.1) % Kemper % (Auto) (5.3-12.2) % Eos % (Auto) (0.8-7.0) Baso % (Auto) (0.1-1.2) % Neut # (Auto) (1.78-5.38) K/mm3 Lymph # (Auto) (1.32-3.57) K/mm3 Kemper # (Auto) (0.30-0.82) K/mm3 Eos # (Auto) (0.04-0.54) K/mm3 Baso # (Auto) (0.01-0.08) K/mm3 Manual Slide Review D-Dimer, Quantitative (0.19-0.50) mg/L Sodium 140 (136-145) mEq/L Potassium 4.1 (3.5-5.1) mEq/L Chloride 105 (98-107) mEq/L Carbon Dioxide 26 (21-32) mEq/L Anion Gap 13.1 (5-15) BUN 15 (7-18) mg/dL Creatinine 0.9 (0.7-1.3) mg/dL Est Cr Clr Drug Dosing 130.53 mL/min Estimated GFR (MDRD) > 60 (>60) mL/min BUN/Creatinine Ratio 16.7 (14-18) Glucose 135 H (70-99) mg/dL Calcium 8.4 L (8.5-10.1) mg/dL Magnesium 2.3 (1.8-2.4) mg/dL Total Bilirubin 0.7 (0.2-1.0) mg/dL AST 92 H (15-37) U/L ALT 198 H (16-63) U/L Alkaline Phosphatase 38 L (46-116) U/L C-Reactive Protein 1.6 H* (<1.0) mg/dL Total Protein 6.8 (6.4-8.2) g/dl Albumin 2.8 L (3.4-5.0) g/dl Globulin 4.0 gm/dL Albumin/Globulin Ratio 0.7 L (1-2) Result Diagrams: 01/14/21 05:05 01/14/21 05:05 Eugenio Results Last 24 hrs: Microbiology 01/12/21 13:06 Blood Culture - Preliminary Blood - Venous - Lab Draw 01/12/21 12:56 Blood Culture - Preliminary Blood - Venous Sepsis Event Note - Evaluation Sepsis Screening Result: No Definite Risk - Focused Exam Vital Signs: Vital Signs Temp Pulse Resp BP Pulse Ox Pulse Ox 01/14/21 06:41 91 L 01/14/21 05:36 97.7 F 78 18 147/92 H 94 L 01/13/21 19:42 90 L 01/13/21 19:38 98.1 F 85 24 H 150/92 H 90 L - Problem List & Annotations (1) Hypoxia SNOMED Code(s): 315895742 Code(s): R09.02 - HYPOXEMIA Status: Acute Priority: High Current Visit: Yes (2) COVID-19 SNOMED Code(s): 448526952 Code(s): U07.1 - COVID-19 Status: Acute Priority: High Current Visit: Y es (3) Pneumonia due to 2019 novel coronavirus SNOMED Code(s): 917218906900844918 Code(s): U07.1 - COVID-19; J12.82 - PNEUMONIA DUE TO CORONAVIRUS DISEASE 2019 Status: Acute Priority: High Current Visit: Yes (4) Generalized weakness SNOMED Code(s): 08762707 Code(s): R53.1 - WEAKNESS Status: Acute Priority: High Current Visit: Yes (5) Obesity (BMI 30-39.9) SNOMED Code(s): 912988558, 372247542 Code(s): E66.9 - OBESITY, UNSPECIFIED Status: Acute Priority: High Current Visit: Yes (6) Acute respiratory failure SNOMED Code(s): 51669961 Code(s): J96.00 - ACUTE RESPIRATORY FAILURE, UNSP W HYPOXIA OR HYPERCAPNIA Status: Acute Priority: High Current Visit: Yes - Problem List Review Problem List Initiated/Reviewed/Updated: Yes - My Orders Last 24 Hours: My Active Orders 01/13/21 09:00 Cholecalciferol (Vitamin D3) [Vitamin D3] 5,000 unit PO DAILY dexAMETHasone 6 mg PO DAILY 01/13/21 14:30 Remdesivir 100 mg Sodium Chloride 0.9% [Normal Saline] 100 ml IV Q24H 01/15/21 05:11 C-REACTIVE PROTEIN [CHEM] AM CBC WITH AUTO DIFF [HEME] AM COMPREHENSIVE METABOLIC PN,CMP [CHEM] AM MAGNESIUM [CHEM] AM 01/16/21 05:11 C-REACTIVE PROTEIN [CHEM] AM CBC WITH AUTO DIFF [HEME] AM COMPREHENSIVE METABOLIC PN,CMP [CHEM] AM D-DIMER QUANTITATIVE [COAG] Q48H MAGNESIUM [CHEM] AM 01/18/21 05:11 D-DIMER QUANTITATIVE [COAG] Q48H - Assessment Assessment:: Assessment - day of admission 01/12/2021 * 30-year-old male who presents to our facility as a direct admit from [facility] in [place] due to continuing COVID-19 pneumonia with failed outpatient treatment. * Reports his symptoms began on 01/01/2021 and he initially tested positive for Covid on 01/12/2021 * Reports 2 days ago he was started on a steroid pill, and an antibiotic pill, and a liquid cough medicine but he is not sure what these were. * Today he is requiring 3 L of oxygen. * He reports diarrhea that comes and goes and a cough with mild sputum production. * He states that he does feel congested at times and quite weak. * He denies any current medications, known drug allergies, or current medical conditions aside from a jovon in his left leg which was placed several years ago secondary to a fracture. * He reports he is overall quite healthy. * Did not receive COVID-19 vaccine * He is obese with a BMI of 38.6. * He subsequently admitted to the medical floor for management of his COVID-19 pneumonia symptoms and further work-up. 01/13/2021 30-year-old male admitted to the hospital after being transferred from [place] with COVID-19 pneumonia. Overall has been doing quite well. He is weaned down to 1 L supplemental oxygen. He is receiving remdesivir and dexamethasone. He states his cough has been very minimal and his shortness of breath has great ly improved. He has been proning and utilizing his incentive spirometry and Acapella. He has no concerns. Labs today show WBC of 7.45. Hemoglobin 14.0. Platelet 294. Neutrophils are elevated 72.1%. D-dimer yesterday was 0.76. We will recheck this tomorrow. Sodium is 139. Potassium is 4.3. Chloride is 105. Carbon dioxide is 27. Anion gap is 11.3. BUN is 17. Creatinine 1.0. GFR greater than 60. Glucose is 137. Calcium 8.3. Magnesium is 2.3. Ferritin obtained yesterday was 4310. Bilirubin 0.4. AST is 81, ALT 137, alkaline phosphatase 37. LDH obtained yesterday was 752. CRP is 2.6 which is down from yesterday. Protein is 6.8. Albumin 2.7. Vitamin D obtained yesterday was 30.5. Patient was started on vitamin D supplementation. Procalcitonin was 0.13. He is remained very stable. Hopeful for discharge in the next 1 to 3 days pending continued improvement and weaning of oxygen. 01/14/2021 This is a 30-year-old male admitted to the floor for COVID-19 pneumonia treatment. Patient was weaned off of oxygen just moments ago we will see if he is able to maintain saturations on room air. Overall he reports he feels very good. He reports minimal cough with occasional sputum and does not feel very short of breath. He has been proning regularly and ambulating around the room. He has been using his I-S and Acapella. Labs today show WBC of 9.04. Hemoglobin 14.0. Platelet 320,000. Neutrophils are elevated 73.4%. D-dimer is down to 0.38. Sodium 140. Potassium 4.1. Chloride 105. Carbon dioxide 26. Anion gap is 13.1. BUN is 15. Creatinine 0.9. GFR greater than 60. Glucose 135. Calcium 8.4. Magnesium 2.3. Total bilirubin 0.7. AST is 92, ALT 198, alkaline phosphatase 38. CRP is down to 1.6. Protein is 6.8. Albumin is 2.8. Overall clinically he looks good. Plan will be to discharge tomorrow if patient is able to maintain oxygen saturations on room air. - Plan Plan:: Hypoxia COVID-19 Pneumonia due to 2019 novel coronavirus Generalized weakness Acute respiratory failure * RT consultation * PRN Albuterol MDI * PRN Duonebs * Prone whenever able * Dexamethasone 6mg - day 08/24 (started prior to admission) * Remdesivir - day 06/19 * Zinc supplementation * PT/OT consult * CM/SW consultation * O2 as needed to keep saturations between 88-95% * Daily labs * Q48Hr D-Dimer * Lovenox for DVT prophylaxis * Ambulate in room * Telemetry * Continuous pulse oximetry * Airborne/contact isolation * Famotidine 20mg BID * Mucinex BID Obesity (BMI 30-39.9) * Lifestyle modifications * Consider mobile manager consultation when appropriate Code status: Full Code PCP: None locally DVT prophylaxis: Lovenox Disposition: Admitted to medical floor from [place] as a direct admit for management of failed outpatient treatment of COVID-19 pneumonia. Likely length of stay tomorrow pending continued ability to maintain saturations on room air.
[2021-01-14] MEDS: Cholecalciferol (Vitamin D3) 5,000 UNIT Cap PO SCH (10:02)
[2021-01-14] MEDS: Zinc Sulfate 220 MG Cap PO SCH (10:02)
[2021-01-14] MEDS: Famotidine 20 MG Tab PO SCH ×2 (10:02→20:51)
[2021-01-14] MEDS: Dexamethasone 4 MG Tab PO SCH (10:02)
[2021-01-14] MEDS: guaiFENesin 600 MG Tab.ER PO SCH ×2 (10:03→20:51)
[2021-01-14] MEDS: REMDESIVIR 100 MG in Sodium Chloride 0.9% 100 ML IV SCH (14:26)
[2021-01-14] MEDS: Enoxaparin 40 MG/0.4 ML Syringe SUBCUT SCH (14:26)
--- NOTE | 2021-01-15 08:48 | PCM.DCSUM1 ---
Discharge Summary - Hospital Course HPI Initial Comments: This is a 30-year-old male who presents to our facility as a direct admit from [facility] in [place] due to continuing COVID-19 pneumonia with failed outpatient treatment. Patient reports his symptoms began on 01/01/2021 and he initially tested positive for Covid on 01/12/2021. He reports 2 days ago he was started on a steroid pill, and an antibiotic pill, and a liquid cough medicine but he is not sure what these were. Today he is requiring 3 L of oxygen. He reports diarrhea that comes and goes and a cough with mild sputum production. He states that he does feel congested at times and quite weak. He denies any current medications, known drug allergies, or current medical conditions aside from a jovon in his left leg which was placed several years ago secondary to a fracture. He reports he is overall quite healthy. He did not receive the COVID-19 vaccine. He is not a smoker. He is obese with a BMI of 38.6. He is a full code. He subsequently admitted to the medical floor for management of his COVID-19 pneumonia symptoms and further work-up. Diagnosis: Stroke: No - Discharge Data Discharge Date: 01/15/21 (Admit date: 01/12/2021) Discharge Disposition: Home, Self-Care 01 Condition: Good - Referral to Home Health Primary Care Physician: PCP Not In Area - Discharge Diagnosis/Problem(s) (1) Hypoxia SNOMED Code(s): 539353683 ICD Code: R09.02 - HYPOXEMIA Status: Resolved Priority: High Current Visit: Yes (2) COVID-19 SNOMED Code(s): 323062659 ICD Code: U07.1 - COVID-19 Status: Acute Priority: High Current Visit: Yes (3) Pneumonia due to 2019 novel coronavirus SNOMED Code(s): 085742393217354631 ICD Code: U07.1 - COVID-19; J12.82 - PNEUMONIA DUE TO CORONAVIRUS DISEASE 2019 Status: Acute Priority: High Current Visit: Yes (4) Generalized weakness SNOMED Code(s): 51107026 ICD Code: R53.1 - WEAKNESS Status: Resolved Priority: High Current Visit: Yes (5) Obesity (BMI 30-39.9) SNOMED Code(s): 281267313, 651237190 ICD Code: E66.9 - OBESITY, UNSPECIFIED Status: Acute Priority: High Current Visit: Yes (6) Acute respiratory failure SNOMED Code(s): 67059848 ICD Code: J96.00 - ACUTE RESPIRATORY FAILURE, UNSP W HYPOXIA OR HYPERCAPNIA Status: Resolved Priority: High Current Visit: Yes Qualifiers: Respiratory failure complication: hypoxia Qualified Code(s): J96.01 - Acute respiratory failure with hypoxia - Patient Summary/Data Consults: Consultations 01/12/21 12:35 Respiratory Care Assess and Treatment [CONS] Routine Labs Pending at D/C: None Recommended Follow-up Testing/Procedures: Follow-up with primary care provider within 7 to 10 days of discharge, sooner if needed. * Recommend repeat CBC, CMP, and magnesium in follow-up. Consider repeat chest x-ray. * Patient discharged on 4 more days of dexamethasone p.o. and zinc supplementation. * Patient's vitamin D was checked and was on the very low end of normal. He was discharged on supplementation for this. Hospital Course: This is a 30-year-old male who presented to our hospital on 01/12/2021 as a direct admit from [place] for Covid treatment. He reports symptoms began on 01/01/2021 and he tested positive for Covid on 01/12/2021. Per his report he was receiving dexamethasone, doxycycline, and a liquid cough medicine outpatient but continued to get worse. On admission he was requiring 3 L of oxygen. He was reporting diarrhea, cough, and mild sputum production. He was continued on 6 mg dexamethasone. He was receiving Mucinex and remdesivir. He was utilizing incentive spirometry and Acapella. He was proning regularly. He was weaned off of oxygen quite rapidly and has been on room air for over the past 24 hours. He reports symptoms of greatly improved to resolved. D-dimer was mildly elevated and did return to normal range. He reports minimal to no shortness of breath. Vitamin D was obtained was on the low end of normal at 30.5. He was started on vitamin D supplementation. Procalcitonin was 0.13 and there were no signs of infection so he did not receive an antibiotic. He had no concerns. He was discharged home today. He was instructed to continue to isolate/quarantine for a total of 20 days from symptom onset. He was instructed to continue to prone and utilize his incentive spirometer and Acapella. Recommend follow-up with primary care provider within 7 to 10 days of discharge, sooner if needed. Recommend repeat CBC, CMP, and magnesium at discharge. Consider repeat chest x- ray. Patient discharged on zinc and vitamin D supplementation. D-dimer was within normal limits at discharge so no anticoagulant medications will be prescribed at discharge.. Patient instructed to continue to take 4 more days of his p.o. dexamethasone and then stop. Instructed to contact primary care provider return the emergency room should symptoms return or worsen. - Patient Instructions Diet: Usual Diet as Tolerated Activity: As Tolerated Driving: Do Not Drive (Until feeling better ) Showering/Bathing: May Shower Notify Provider of: Fever, Increased Pain, Nausea and/or Vomiting Other/Special Instructions: Follow-up with primary care provider within 7-10 days of discharge, sooner if needed. Take 4 more days of your dexamethasone (Steroid) and then stop. Do not continue your antibiotic doxycycline as this is not indicated. Your vitamin D was tested here and was on the very low end of normal. You were started on supplementation for this. Your primary care provider may follow-up with you regarding this. You were started on zinc supplementation. Some studies have shown a potential benefit from patient's who are Covid positive and on zinc. You may discuss with your primary care provider whether to continue this. No other new home medications. Continue to utilize your incentive spirometer (clear/blue device you inhale through) and Acapella (green tube you blow through) for 1-2 more weeks or until symptoms resolve. You should continue to isolate/quarantine for a total of 20 days from symptom onset. You may receive a call from a comp field case manager from the [facility]. Please follow their directions. Continue to ambulate around your house. Stay active. If you start to become tired or short of breath take a rest. Continue to prone (lay on your belly) whenever possible. Should symptoms return or worsen contact your primary care provider or return the emergency room. Happy anniversary! Congrats to you both! - Discharge Plan *PRESCRIPTION DRUG MONITORING PROGRAM REVIEWED*: No *COPY OF PRESCRIPTION DRUG MONITORING REPORT IN PATIENT MADELAINE: No Prescriptions/Med Rec: Cholecalciferol (Vitamin D3) [Vitamin D3] 5,000 unit PO DAILY #20 cap Zinc Sulfate [Zincate] 220 mg PO DAILY #20 cap Home Medications: Home Meds Cholecalciferol (Vitamin D3) [Vitamin D3] 5,000 unit PO DAILY #20 cap 01/15/21 [Rx] Zinc Sulfate [Zincate] 220 mg PO DAILY #20 cap 01/15/21 [Rx] dexAMETHasone [Decadron] 6 mg PO DAILY #3 01/15/21 [Rx] Oxygen Therapy Mode: Room Air Patient Handouts: COVID-19 Frequently Asked Questions, COVID-19, 10 Things You Can Do to Manage Your COVID-19 Symptoms at Home - [facility] (10/30/2020), Smokeless Tobacco Information, Adult Referrals: Swapna Bruno NP [Ordering Only Provider] - 01/26/21 9:30 am (Please arrive 15 minutes prior to the appointment.) - Discharge Summary/Plan Comment DC Time >30 min.: Yes Total # of Minutes for Discharge Time: 45 - General Info Date of Service: 01/15/21 Admission Dx/Problem (Free Text: Hypoxia Functional Status: Reports: Pain Controlled, Tolerating Diet, Ambulating, Urinating, Incentive Spirometry, Other (Acapella ). Denies: New Symptoms - Review of Systems General: Reports: No Symptoms. Denies: Fever, Weakness, Fatigue, Malaise, Ch ills HEENT: Reports: No Symptoms. Denies: Headaches, Sore Throat Pulmonary: Reports: Cough (minimal ). Denies: Shortness of Breath, Pleuritic Chest Pain, Sputum, Wheezing Cardiovascular: Reports: No Symptoms, Dyspnea on Exertion (minimal ). Denies: Edema Gastrointestinal: Reports: No Symptoms. Denies: Abdominal Pain, Constipation, Diarrhea, Vomiting Genitourinary: Reports: No Symptoms. Denies: Pain Musculoskeletal: Reports: No Symptoms Skin: Reports: No Symptoms. Denies: Cyanosis Neurological: Reports: No Symptoms. Denies: Confusion Psychiatric: Reports: No Symptoms - Patient Data Vitals - Most Recent: Last Vital Signs Temp 98.1 F 01/15/21 05:55 Pulse 69 01/15/21 05:55 Resp 16 01/15/21 05:55 BP 154/83 H 01/15/21 05:55 Pulse Ox 95 01/15/21 05:55 Weight - Most Recent: 280 lb 9.6 oz I&O - Last 24 hours: Intake & Output 01/14/21 01/15/21 01/15/21 22:59 06:59 14:59 Intake Total 2080 3200 Output Total 600 900 Balance 1480 2300 Lab Results - Last 24 hrs: Laboratory Results - last 24 hr 01/15/21 Range/Units 04:45 WBC 8.90 (4.23-9.07) K/mm3 RBC 4.72 (4.63-6.08) M/mm3 Hgb 13.9 (13.7-17.5) gm/dl Hct 41.0 (40.1-51.0) % MCV 86.9 (79.0-92.2) fl MCH 29.4 (25.7-32.2) pg MCHC 33.9 (32.2-35.5) g/dl RDW Std Deviation 38.5 (35.1-43.9) fL Plt Count 320 (163-337) K/mm3 MPV 9.3 L (9.4-12.3) fl Neut % (Auto) 68.9 H (34.0-67.9) % Lymph % (Auto) 17.2 L (21.8-53.1) % [place] % (Auto) 12.2 (5.3-12.2) % Eos % (Auto) 0 L (0.8-7.0) Baso % (Auto) 0.2 (0.1-1.2) % Neut # (Auto) 6.13 H (1.78-5.38) K/mm3 Lymph # (Auto) 1.53 (1.32-3.57) K/mm3 [place] # (Auto) 1.09 H (0.30-0.82) K/mm3 Eos # (Auto) 0.00 L (0.04-0.54) K/mm3 Baso # (Auto) 0.02 (0.01-0.08) K/mm3 Manual Slide Review Normal smear [facility]KE Results - Last 24 hrs: Microbiology 01/12/21 13:06 Blood Culture - Preliminary Blood - Venous - Lab Draw 01/12/21 12:56 Blood Culture - Preliminary Blood - Venous Med Orders - Current: Current Medications Acetaminophen (Acetaminophen 325 Mg Tab) 650 mg PO Q4H PRN PRN Reason: Pain (Mild 1-3)/fever Albuterol (Albuterol 6.7 Gm Inhaler) 0 gm INH Q2H PRN PRN Reason: SOB/Wheezing Albuterol/Ipratropium (Albuterol/Ipratropium 3.0-0.5 Mg/3 Ml Neb Soln) 3 ml NEB QIDRT PRN PRN Reason: Shortness Of Breath/wheezing Cholecalciferol (Cholecalciferol (Vitamin D3) 5,000 Unit Cap) 5,000 unit PO DAILY [facility] Last Admin: 01/14/21 10:02 Dose: 5,000 unit Documented by: Dexamethasone (Dexamethasone 4 Mg Tab) 6 mg PO DAILY [facility] Stop: 01/20/21 09:01 Last Admin: 01/14/21 10:02 Dose: 6 mg Documented by: Docusate Sodium (Docusate Sodium 100 Mg Cap) 100 mg PO Q12H PRN PRN Reason: Constipation Enoxaparin Sodium (Enoxaparin 40 Mg/0.4 Ml Syringe) 40 mg SUBCUT Q24H [facility] Last Admin: 01/14/21 14:26 Dose: 40 mg Documented by: Famotidine (Famotidine 20 Mg Tab) 20 mg PO BID [facility] Last Admin: 01/14/21 20:51 Dose: 20 mg Documented by: Guaifenesin (Guaifenesin 600 Mg Tab.Er) 600 mg PO BID [facility] Last Admin: 01/14/21 20:51 Dose: 600 mg Documented by: Remdesivir 100 mg/ Sodium (Chloride) 100 mls @ 100 mls/hr IV Q24H [facility] Stop: 01/16/21 15:29 Last Admin: 01/14/21 14:26 Dose: 100 mls/hr Documented by: Ondansetron HCl (Ondansetron 4 Mg/2 Ml Sdv) 4 mg IV Q6H PRN PRN Reason: Nausea/Vomiting Zinc Sulfate (Zinc Sulfate 220 Mg Cap) 220 mg PO DAILY [facility] Last Admin: 01/14/21 10:02 Dose: 220 mg Documented by: Discontinued Medications Remdesivir 200 mg/ Sodium (Chloride) 250 mls @ 250 mls/hr IV ONETIME ONE Stop: 01/12/21 15:29 Last Admin: 01/12/21 14:15 Dose: 250 mls/hr Documented by: - Exam Quality Assessment: Reports: DVT Prophylaxis. Denies: Supplemental Oxygen, Urin e Catheter General: Reports: Alert, Oriented, Cooperative, No Acute Distress HEENT: Reports: Pupils Equal, Pupils Reactive Neck: Reports: Supple, Trachea Midline Lungs: Reports: Normal Respiratory Effort, Decreased Breath Sounds. Denies: Crackles, Rhonchi, Wheezing Cardiovascular: Reports: Regular Rate, Regular Rhythm GI/Abdominal Exam: Normal Bowel Sounds, Soft, Non-Tender (Male) Exam: Deferred Rectal (Males) Exam: Deferred Back Exam: Reports: Normal Inspection, Full Range of Motion Extremities: Normal Inspection, Normal Range of Motion, Non-Tender, No Pedal Edema, Normal Capillary Refill Skin: Reports: Warm, Dry, Intact Neurological: Reports: No New Focal Deficit Psy/Mental Status: Reports: Alert, Normal Affect, Normal Mood
[2021-01-15] MEDS: guaiFENesin 600 MG Tab.ER PO SCH (09:04)
[2021-01-15] MEDS: Cholecalciferol (Vitamin D3) 5,000 UNIT Cap PO SCH (09:04)
[2021-01-15] MEDS: Famotidine 20 MG Tab PO SCH (09:04)
[2021-01-15] MEDS: Zinc Sulfate 220 MG Cap PO SCH (09:04)
[2021-01-15] MEDS: Dexamethasone 4 MG Tab PO SCH (09:05)
== END 2021-01-15 10:33 | disposition home or self-care (01) | DRG 137 ==
LOC: JD.MS 11:32
PROVIDERS: ADMIT Family Medicine; ATTEND Family Medicine
PROC: XW033E5 Introduction of Remdesivir Anti-infective into Peripheral Vein, Percutaneous Approach, New Technology Group 5 (ICD-10-PCS; principal; 2021-01-12)
PROC: 8E0ZXY6 Isolation (ICD-10-PCS; 2021-01-12)
PROC: 3E0DX3Z Introduction of Anti-inflammatory into Mouth and Pharynx, External Approach (ICD-10-PCS; 2021-01-13)
DX: U07.1 COVID-19 (principal); J12.82 Pneumonia due to coronavirus disease 2019; J96.01 Acute respiratory failure with hypoxia; E66.9 Obesity, unspecified; Z68.38 Body mass index [BMI] 38.0-38.9, adult
CPT/HCPCS: 36415; 71045; 71045-26; 80053; 82306; 82728; 83605; 83615; 83735; 84145; 85025; 85379; 86140; 87040; 94667; 94668; 94762; A9270-GY; J1650; J7050; J8540